=== PATIENT | female | born 1950 | race Caucasian/White ===

== ENCOUNTER 2016-11-23 21:12 | Inpatient (IN) | payer OTHER ==
[~2016-11-23] VITALS: Ht 152.4 cm; Wt 50.4 kg
--- NOTE | ~2016-11-23 | EKG ---
[place] [address] [employer] [address] ELECTROCARDIOGRAM REPORT Name: FARZAD PAZ Room #: 456-P ADM IN M.R.#: [id number] Admission: 11/23/16 Attend Phys: Cami Pride Discharge: Date of : 48 Report #: [id number] THIS REPORT FOR: //name// [facility] ED Test Date: 2016-11-23 Test Time: 21:50:14 Pat Name: FARZAD PAZ Department: Room: 456 Gender: F Phd Internship: Bright PARRISH : 1950 Requested By: Chelsy Noguera Order Number: [id number] MD: Leoncio Solis Measurements Intervals [place] Rate: 108 P: 67 AR: 127 QRS: 268 QRSD: 83 T: 31 QT: 324 QTc: 435 Interpretive Statements Sinus tachycardia Biatrial enlargement Left anterior fascicular block Poor R wave progression Compared to ECG 06/04/2016 19:24:03 septal Q waves less prominent Electronically Signed On 11-24-2016 8:38:29 CDT by Leoncio Solis [email or web address] <ELECTRONICALLY SIGNED> By: Leoncio Solis MD, [facility] 11/24/16 0838 49 49 Leoncio Solis MD, [facility] /EPI
--- NOTE | ~2016-11-23 | 2DMMODE ---
[facility] [address] [place] [address] 2 D/M-MODE ECHOCARDIOGRAM Name: FARZAD PAZ Room #: 456-P ADM IN M.R.#: [id number] Admission: 11/23/16 Attend Phys: Cami Meyers Discharge: Date of : 48 Date of Service: 11/25/16 1048 Report #: [id number] THIS REPORT FOR: //name// APPROVED REPORT Study performed: 11/25/2016 09:39:10 EXAM: Comprehensive 2D, Doppler, and color-flow Echocardiogram Patient Location: Echo lab Room #: [facility] Blood Pressure: 113/71 mmHg HR: 84 bpm Other Information Study Quality: Adequate Indications COPD Dyspnea 2D Dimensions LVEF(%): 65.35 (>50%) IVSd: 9.51 (7-11mm) LVOT Diam: 21.29 (18-24mm) LVDd: 40.89 mm PWd: 10.58 (7-11mm) Ascending Aorta: 32.38 mm LVDs: 26.40 (25-40mm) IVC: 24.00 mm Aortic Root: 31.60 mm Carmichael's LVEF: 65.35 % Volumes Left Atrial Volume (Systole) Single Plane 4CH: 26.71 mL Single Plane 2CH: 23.72 mL LA ESV Index: 19.00 mL/m2 Aortic Valve AoV Peak Saeid.: 1.25 m/s AO Peak Gr.: 6.25 mmHg LV Max P.60 mmHg LV Max: 1.18 m/s Mitral Valve E/A Ratio: 0.8 MV Decel. Time: 250.93 ms MV E Max Saeid.: 0.93 m/s [facility] [address] [place] [address] 2 D/M-MODE ECHOCARDIOGRAM Name: FARZAD PAZ Room #: 456-P [facility] IN [facility]#: [id number] Admission: 11/23/16 Attend Phys: Cami Meyers Discharge: Date of : 48 Date of Service: 11/25/16 1048 Report #: [id number] MV A Saeid.: 1.15 m/s MV PHT: 72.77 ms Pulmonary Valve PV Peak Saeid.: 0.82 m/s PV Peak Gr.: 2.69 mmHg Pulmonary Vein P Vein S: 63.7 m/s P Vein D: 42.6 m/s P Vein A Dur.: 46.1 m/s PVa Duration: 92 Tricuspid Valve RAP Estimate: 10.00 mmHg Left Ventricle The left ventricle is normal size. There is normal LV segmental wall motion. There is normal left ventricular wall thickness. The left ventricular systolic function is normal. The left ventricular ejection fraction is within the normal range. LVEF is 60-65%. Grade I - abnormal relaxation pattern. Right Ventricle The right ventricle is normal size. The right ventricular systolic function is normal. Atria The left atrium size is normal. The right atrium size is normal. Aortic Valve The aortic valve is normal in structure. No aortic regurgitation is present. There is no aortic valvular stenosis. Mitral Valve The mitral valve is normal in structure. Trace mitral regurgitation. No evidence of mitral valve stenosis. Tricuspid Valve The tricuspid valve is normal in structure. There is trace tricuspid regurgitation. The right atrial pressure is estimated at 10 mmHg. There is no pulmonary hypertension. Pulmonic Valve The pulmonary valve is normal in structure. There is no pulmonic valvular regurgitation. [facility] [employer] [place] [address] 2 D/M-MODE ECHOCARDIOGRAM Name: FARZAD PAZ Darrin Room #: 456-P [facility] IN M.R.#: [id number] Admission: 11/23/16 Attend Phys: Cami Meyers Discharge: Date of : 48 Date of Service: 11/25/16 1048 Report #: [id number] Great Vessels The aortic root is normal in size. IVC is dilated and collapses >50% with inspiration. Pericardium There is no pericardial effusion. <Conclusion> The left ventricular systolic function is normal. There is normal LV segmental wall motion. LVEF 60-65%. Grade I diastolic dysfunction The aortic valve is normal in structure. No aortic regurgitation or stenosis. The mitral valve is normal in structure. No mitral regurgitation. Pulmonary artery pressure could not be reliably ascertained There is no pericardial effusion. <ELECTRONICALLY SIGNED> By: Leoncio Solis MD, FAC 11/25/16 1048 1048 1048 Leoncio Solis MD, FAC /INF
--- NOTE | ~2016-11-23 | HC ---
[facility] [place] [address] [place] [address] CONSULTATION Name: FARZAD PAZ Room #: 456-P [facility] IN M.R.#: [id number] Admission: 11/23/16 Attend Phys: Cami Pride Discharge: Date of : 48 Report #: [id number] THIS REPORT FOR: //name// CC: Ruby JEFFERY physician/PCP Cami Pride DATE OF SERVICE: 11/26/2016 HISTORY OF PRESENT ILLNESS: The patient is a 66-year-old white female with history of COPD, admitted with acute respiratory failure with hypoxemia. She was noted to have community-acquired pneumonia, right lower lobe with severe leukocytosis. She has problems with mucus plugging. Pulmonary medicine has been closely involved. She is on high dose O2 6-8 liters. We are seeing her in rehabilitation medicine consultation. PAST MEDICAL HISTORY: Includes chronic bronchitis, diverticulitis with prior ruptured bowel surgery and colostomy, tubal ligation, asthma, colostomy takedown. HABITS: Tobacco abuse has been one half per day, used to be 2 packs per day. No history of ETOH abuse. FAMILY HISTORY: Mother of lung cancer. MEDICATIONS: Please see the full medication listing. SOCIAL HISTORY: Lives in a house with son and his family, one step in. She was driving, was independent for ADLs, do not use a gait aid, was on O2 p.r.n. at home. REVIEW OF SYSTEMS: Main complaint is her lungs, shortness of breath and cough and O2 needs. No complaints of chest pain, abdominal discomfort. No focal extremity pain complaints. PHYSICAL EXAMINATION: GENERAL: A 66-year-old white female in no obvious distress. VITAL SIGNS: Last recorded temperature 97.6, pulse 93, respirations 18, blood pressure 131/74. NEUROLOGIC: She is alert, oriented, appropriate, currently on 6 liters nasal cannula. Facies are symmetric. She has functional range of motion of both upper extremities with strength grade 4+/5. DTRs are trace to 1. Lower extremities, no focal calf swelling. Functional range of motion with strength grade 4+/5. DTRs are trace to 1. ASSESSMENT: [facility] [address] [place] [address] CONSULTATION Name: NOHELIA PAZPARADISE Clifford Room #: 456-P [facility] IN .R.#: [id number] Admission: 11/23/16 Attend Phys: Cami Pride Discharge: Date of : 48 Report #: [id number] 1. Pulmonary rehabilitation. 2. Acute respiratory failure with hypoxemia. 3. Community-acquired pneumonia, right lower lobe. 4. Severe leukocytosis. 5. Chronic obstructive pulmonary disease. 6. Tobacco abuse. 7. Family history positive for asthma and lung cancer. 8. Prior history of colostomy for diverticulitis with takedown. PLAN: PT and OT. Further orders are entered. Insurance will need to be checked regarding rehab therapy options for discharge. Thank you for asking us to assist in this patient's care. By: 1120 1452 Basil Dallas MD /nt
--- NOTE | ~2016-11-23 | HC ---
[facility] [address] [place] [address] CONSULTATION Name: PAZFARZAD Darrin Room #: 456-P [facility] IN M.R.#: [id number] Admission: 11/23/16 Attend Phys: Cami Pride Discharge: Date of : 48 Report #: [id number] THIS REPORT FOR: //name// CC: Ruby JEFFERY physician/PCP Cami Pride DATE OF SERVICE: 11/24/2016 REASON FOR CONSULTATION: Exacerbation of chronic obstructive pulmonary disease. IMPRESSION: 1. Acute on chronic respiratory failure with hypoxemia. 2. Mucus plugging. 3. Tobacco use. 4. Leukocytosis. PLAN: Pulmonary toilet, aerosol therapy. Need to work on home medications ____ flutter. Continue current cefepime until sputum culture. HISTORY OF PRESENT ILLNESS: This is a very pleasant 66-year-old female, relates was doing her usual state of health, was not using nebulizers as could not afford them, was using the oxygen when she thought she needed it, was on the wrong side of a barbeque grill and relates had progressive shortness of breath. No fever, chills, or night sweats. No nausea or vomiting. ALLERGIES: AMOXICILLIN, CLAVULANIC ACID, CONTRAST. FAMILY HISTORY: Positive for asthma and lung CA. SOCIAL HISTORY: Positive tobacco, negative ETOH. PAST SURGICAL HISTORY: Include colostomy for diverticulitis with takedown, tonsillectomy, tubal ligation. REVIEW OF SYSTEMS: Positive history of asthma as a child. Positive tobacco use. Positive mucus. No nausea or vomiting. No palpitations or chest pain. No peripheral edema. PHYSICAL EXAMINATION: VITAL SIGNS: T-max 100, pulse 95, respirations 20, BP 136/70. EYES: Negative icterus. NECK: Negative JVD. LUNGS: Showed wheeze bilateral. HEART: Regular. ABDOMEN: Bowel sounds present. [facility] [address] [place] [address] CONSULTATION Name: FARZAD PAZ Room #: 456-P [facility] IN ..#: [id number] Admission: 11/23/16 Attend Phys: Cami Pride Discharge: Date of : 48 Report #: [id number] EXTREMITIES: Showed no calf tenderness. LABORATORY DATA: Chest x-ray showed interstitial prominence. BUN 23, creatinine 0.6. Albumin 3.2. Lactate 1.3. Influenza negative. D-dimer 0.8. TSH 2.831. Perfusion lung scan showed low probability. We will follow closely with you. <ELECTRONICALLY SIGNED> By: Ruby Gibson MD 11/25/16 1341 1821 0126 Ruby Gibson MD /nt
[2016-11-23 21:12] VITALS: BP 155/99
[~2016-11-23 21:12] MED LIST: ACCUNEB SO1.25 MG/1 INH; ADVAIR HFA 230M12 GM INH; CEFTIN500 MG PO; DOXYCYCLINE 10100 MG PO; DUONEB 2.5-0.5 M3 ML INH; LEVAQUIN 500 M500 M2 PO; MUCINEX DM TABL1 TA1 PO; MUCINEX TA600 MG/TA2 PO; NEBULIZER MISCELL; OXYGEN MISCELL; PREDNISONE 10 M10 MG PO; PULMICORT0.5 MG/22 INH
[2016-11-23 21:43] LABS: HEMOGLOBIN 15.2 gm/dL (12.0-15.0); MCH 29.1 pg (26.0-34.0); MCV 88.2 fL (80.0-100.0); PLATELET COUNT 346 thou/uL (150-400); RBC 5.22 mil/uL (4.20-5.00); RDW 15.3 % (10.5-14.5); WBC 23.4 thou/uL (4.0-11.0)
[2016-11-23 21:54] LABS: MANUAL DIFF YES
[2016-11-23 22:00] LABS: ANION GAP 8 mmol/L (7-16); BUN 23 mg/dL (7-18); CALCIUM 9.2 mg/dL (8.5-10.1); CHLORIDE 103 mmol/L (98-107); CO2 29 mmol/L (21-32); CREATININE 0.6 mg/dL (0.6-1.0); GLUCOSE 137 mg/dL (74-106); POTASSIUM 3.5 mmol/L (3.5-5.1); SODIUM 140 mmol/L (136-145)
[2016-11-23 22:11] LABS: ALBUMIN 3.2 g/dL (3.4-5.0); ALKALINE PHOSPHATASE 85 U/L (46-116); NT-PRO BRAIN NAT PEPTIDE 644 pg/mL (<300); SGOT 12 U/L (15-37); SGPT 13 U/L (30-65); TOTAL BILIRUBIN 0.4 mg/dL (<0.1-1.0); TROPONIN-I < 0.04 ng/mL (<0.04-0.07)
[2016-11-23 23:02] VITALS: BP 125/79
[2016-11-23 23:04] LABS: ANISOCYTOSIS SLIGHT; TOTAL CELL COUNT 100
[2016-11-24 00:20] VITALS: BP 125/87
[2016-11-24 03:49] VITALS: BP 110/71
[2016-11-24 08:10] VITALS: BP 102/74
[2016-11-24 10:58] VITALS: BP 109/71
[2016-11-24 15:08] VITALS: BP 136/70
[2016-11-24 19:03] VITALS: BP 119/72
[2016-11-25 04:01] VITALS: BP 117/69
[2016-11-25 05:34] LABS: HEMATOCRIT 43.2 % (37.0-47.0); HEMOGLOBIN 13.7 gm/dL (12.0-15.0); MCH 28.6 pg (26.0-34.0); MCHC 31.7 g/dL (28.0-37.0); MCV 90.2 fL (80.0-100.0); RBC 4.78 mil/uL (4.20-5.00)
[2016-11-25 05:53] LABS: CALCIUM 9.2 mg/dL (8.5-10.1); CREATININE 0.7 mg/dL (0.6-1.0); MAGNESIUM 1.7 mg/dL (1.8-2.4); POTASSIUM 4.3 mmol/L (3.5-5.1)
[2016-11-25 07:21] VITALS: BP 113/71
[2016-11-25 11:13] VITALS: BP 117/75
[2016-11-25 15:47] VITALS: BP 125/77
[2016-11-25 20:18] VITALS: BP 132/88
[2016-11-26 04:16] VITALS: BP 139/77
[2016-11-26 08:31] VITALS: BP 131/74
[2016-11-26 12:59] VITALS: BP 169/95
[2016-11-26 16:50] VITALS: BP 157/87
[2016-11-26 21:12] VITALS: BP 166/93
[2016-11-27] VITALS (7 sets, daily range): BP systolic 148–182; BP diastolic 85–100
[2016-11-27 09:12] LABS: GLOMERULR BASEM MEMBRN AB 2 units (0-20)
[2016-11-27] MEDS ORDERED: CLARITIN10 MG PO (09:27)
[2016-11-27] MEDS ORDERED: PREDNISONE 10 M10 MG PO (09:34)
[2016-11-27 16:08] LABS: c-ANCA <1:20 titer (Neg:<1:20); p-ANCA <1:20 titer (Neg:<1:20)
== END 2016-11-27 16:15 | disposition home health service (06) | DRG 871 ==
LOC: ER 21:12 → EROBS 22:25 → 4W 22:25
PROVIDERS: Emergency Medicine; Hospitalist; Internal Medicine Pulmonary Disease; Nurse Practitioner
DX: A41.9 Sepsis, unspecified organism (principal); J18.9 Pneumonia, unspecified organism; J96.21 Acute and chronic respiratory failure with hypoxia; J44.1 Chronic obstructive pulmonary disease with (acute) exacerbation; J44.0 Chronic obstructive pulmonary disease with (acute) lower respiratory infection; F17.210 Nicotine dependence, cigarettes, uncomplicated; T17.990A Other foreign object in respiratory tract, part unspecified in causing asphyxiation, initial encounter; X58.XXXA Exposure to other specified factors, initial encounter; K46.9 Unspecified abdominal hernia without obstruction or gangrene; I71.4 Abdominal aortic aneurysm, without rupture; Y93.89 Activity, other specified; Y92.89 Other specified places as the place of occurrence of the external cause; Z90.49 Acquired absence of other specified parts of digestive tract; Z93.3 Colostomy status; Z88.8 Allergy status to other drugs, medicaments and biological substances; Z82.49 Family history of ischemic heart disease and other diseases of the circulatory system; Z88.0 Allergy status to penicillin; Z88.1 Allergy status to other antibiotic agents; Z91.041 Radiographic dye allergy status; Y99.8 Other external cause status; Z80.1 Family history of malignant neoplasm of trachea, bronchus and lung; Z83.6 Family history of other diseases of the respiratory system
CPT/HCPCS: 10045

== ENCOUNTER → 2017-03-16 | Outpatient (CLI) | payer OTHER ==
[~2017-03-16] MED LIST changes: +CLARITIN10 MG PO
== END ==
LOC: RAD 14:47
DX: J98.4 Other disorders of lung (principal)

== ENCOUNTER 2017-04-24 19:58 | Emergency (ER) | payer OTHER ==
[~2017-04-24] VITALS: Ht 152.4 cm; Wt 52.2 kg
--- NOTE | ~2017-04-24 | EKG ---
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: Bright VELARDE : 1950 Requested By: Jacoby Barnett Order Number: [id number] MD: Leoncio Solis Measurements Intervals [place] Rate: 104 P: 64 [place]: 133 QRS: -33 QRSD: 75 T: 38 QT: 313 QTc: 412 Interpretive Statements Sinus tachycardia Anteroseptal infarct, age indeterminate Compared to ECG 11/23/2016 21:50:14 No significant change was found Electronically Signed On 04-26-2017 13:31:43 CDT by Leoncio Solis [email or web address] <ELECTRONICALLY SIGNED> By: Leoncio Solis MD, [facility] 04/26/17 1331 2029 28 Leoncio Solis MD, [facility] /EPI
[2017-04-24] MEDS ORDERED: ALBUTEROL2.5 MG/31 INH (20:35)
[2017-04-24 21:26] LABS: ABSOLUTE NEUTROPHILS 11.8 thou/uL (1.4-8.2); BASOPHILS 0.5 % (0.0-2.0); EOSINOPHILS 1.8 % (0.0-3.0); HEMATOCRIT 40.4 % (37.0-47.0); HEMOGLOBIN 13.5 gm/dL (12.0-15.0); LYMPHOCYTES 12.9 % (24.0-44.0); MCHC 33.5 g/dL (28.0-37.0); MCV 89.7 fL (80.0-100.0); MONOCYTES 5.1 % (1.0-8.0); PLATELET COUNT 285 thou/uL (150-400); POLYS 79.7 % (36.0-66.0); RBC 4.51 mil/uL (4.20-5.00); RDW 14.1 % (10.5-14.5); WBC 14.8 thou/uL (4.0-11.0)
[2017-04-24 21:34] LABS: ANION GAP 10 mmol/L (7-16); BUN 12 mg/dL (7-18); CALCIUM 8.9 mg/dL (8.5-10.1); CHLORIDE 102 mmol/L (98-107); CO2 26 mmol/L (21-32); CREATININE 0.7 mg/dL (0.6-1.0); GLUCOSE 140 mg/dL (74-106); POTASSIUM 3.6 mmol/L (3.5-5.1); SODIUM 138 mmol/L (136-145)
[2017-04-24 21:36] LABS: MANUAL DIFF NO
[2017-04-24 21:39] LABS: APTT 27.4 Seconds (24.5-32.8)
[2017-04-24 21:46] LABS: ALBUMIN 3.6 g/dL (3.4-5.0); ALKALINE PHOSPHATASE 93 U/L (46-116); MAGNESIUM 1.6 mg/dL (1.8-2.4); SGOT 12 U/L (15-37); SGPT 12 U/L (30-65); TOTAL BILIRUBIN 0.3 mg/dL (<0.1-1.0); TOTAL PROTEIN 7.5 g/dL (6.4-8.2); TROPONIN-I < 0.04 ng/mL (<0.04-0.07)
[2017-04-24] MEDS ORDERED: DOXYCYCLINE 10100 MG PO (22:07)
[2017-04-24] MEDS ORDERED: PREDNISONE 20 M20 MG PO (22:07)
[2017-04-24] MEDS ORDERED: VENTOLIN HFA 1818 GM INH (22:07)
== END 2017-04-24 23:47 | disposition home or self-care (01) ==
LOC: ER 19:58
PROVIDERS: Emergency Medicine
DX: J44.1 Chronic obstructive pulmonary disease with (acute) exacerbation (principal); J20.9 Acute bronchitis, unspecified; F17.210 Nicotine dependence, cigarettes, uncomplicated; Z99.81 Dependence on supplemental oxygen; Z87.01 Personal history of pneumonia (recurrent); Z98.890 Other specified postprocedural states; Z88.1 Allergy status to other antibiotic agents; Z88.0 Allergy status to penicillin; Z91.041 Radiographic dye allergy status

== ENCOUNTER 2018-06-04 14:48 | Inpatient (IN) | payer OTHER ==
[~2018-06-04] VITALS: Ht 152.4 cm; Wt 52.2 kg
--- NOTE | ~2018-06-04 | PATH ---
[facility] [place] [address] PATHOLOGY RPT PROCEDURE Name: FARZAD MARTIN Room #: 351-P [facility] IN M.R.#: [id number] Admission: 06/04/18 Date of : 48 Discharge: Report #: [id number] Path Case #: [id number] [facility] Accession Number: [id number] . 01 Material submitted: . BX OF POLYP IN SIGMOID COLON . 01 Clinical history: . Constipation Colon polyp . 02 Diagnosis: Colonic mucosa "biopsy of polyp at sigmoid colon": - Tubular adenoma. - There is no evidence of high-grade dysplasia or malignancy. (SHA:coleman; 06/15/2018) QMS/06/15/2018 . 02 Electronically signed: . Owen Massey MD, Pathologist NPI- [id number] . 01 Gross description: . The specimen is received in formalin, labeled "Martin, Karran, BX of polyp in sigmoid" and consists of a fragment of soft moura tissue measuring 0.3 x 0.3 x 0.1 cm, which is entirely submitted in A1. (SDY; 06/14/2018) SYU/SYU . 02 Pathologist provided ICD-10: D12.5 . 02 CPT . 378576 Specimen Comment: A courtesy copy of this report has been sent to Specimen Comment: [phone], , . Specimen Comment: Report sent to ,DR GUNTER / DR GRUBBS Performed at: [address], [place], [place] [id number] MD Kings Murcia MD Phone: [phone] Performed at: [address] [id number] MD Faye Reis MD Phone: [phone]
--- NOTE | ~2018-06-04 | EKG ---
[address] [place] [address] ELECTROCARDIOGRAM REPORT Name: FARZAD PAZ Darrin Room #: 170-12 ADM IN M.R.#: [id number] Admission: 06/04/18 Attend Phys: Gilberto Rice MD Discharge: Date of : 48 Report #: [id number] THIS REPORT FOR: //name// [facility] ED Test Date: 2018-06-04 Test Time: 15:00:40 Pat Name: FARZAD PAZ Department: Room: 170 Gender: F Cable Repairer: MAYA : 1950 Requested By: Fiona Conn Order Number: [id number] MD: Leoncio Solis Measurements Intervals [place] Rate: 101 P: 85 [place]: 137 QRS: -9 QRSD: 73 T: 63 QT: 312 QTc: 405 Interpretive Statements Sinus tachycardia Anteroseptal infarct, age indeterminate Compared to ECG 04/24/2017 20:29:34 No significant change was found Electronically Signed On 06-04-2018 17:17:35 CDT by Leoncio Solis [email or web address] <ELECTRONICALLY SIGNED> By: Leoncio Solis MD, [facility] 06/04/18 1717 1500 99 Leoncio Solis MD, [facility] /EPI
[~2018-06-04 14:48] MED LIST changes: +ALBUTEROL2.5 MG/31 INH; +PREDNISONE 20 M20 MG PO; +VENTOLIN HFA 1818 GM INH
[2018-06-04 14:57] VITALS: BP 152/88
[2018-06-04 15:37] LABS: ABSOLUTE NEUTROPHILS 4.5 thou/uL (1.4-8.2); BASOPHILS 1.1 % (0.0-2.0); EOSINOPHILS 8.1 % (0.0-3.0); HEMOGLOBIN 14.3 gm/dL (12.0-15.0); LYMPHOCYTES 29.8 % (24.0-44.0); MCH 31.2 pg (26.0-34.0); MCV 91.9 fL (80.0-100.0); MONOCYTES 4.2 % (1.0-8.0); PLATELET COUNT 275 thou/uL (150-400); POLYS 56.8 % (36.0-66.0); RBC 4.57 mil/uL (4.20-5.00); RDW 13.3 % (10.5-14.5); WBC 7.9 thou/uL (4.0-11.0)
[2018-06-04 15:55] LABS: ANION GAP 6 mmol/L (7-16); BUN 12 mg/dL (7-18); CALCIUM 9.5 mg/dL (8.5-10.1); CHLORIDE 101 mmol/L (98-107); CO2 33 mmol/L (21-32); CREATININE 0.7 mg/dL (0.6-1.0); GLUCOSE 163 mg/dL (74-106); POTASSIUM 3.9 mmol/L (3.5-5.1); SODIUM 140 mmol/L (136-145)
[2018-06-04 16:01] LABS: ALBUMIN 3.6 g/dL (3.4-5.0); SGOT 19 U/L (15-37); SGPT 25 U/L (30-65); TOTAL BILIRUBIN 0.3 mg/dL (<0.1-1.0); TOTAL PROTEIN 7.7 g/dL (6.4-8.2); TROPONIN-I <0.06 ng/mL (<0.06)
[2018-06-04 17:24] VITALS: BP 152/88
[2018-06-04 18:10] VITALS: BP 126/61
[2018-06-04 18:44] VITALS: BP 121/84
[2018-06-04 23:15] VITALS: BP 126/82
[2018-06-04 23:20] VITALS: BP 126/82
[2018-06-05 04:00] VITALS: BP 125/70
[2018-06-05 07:38] VITALS: BP 135/82
[2018-06-05 15:17] VITALS: BP 141/98
[2018-06-05 19:20] VITALS: BP 143/89
[2018-06-06 03:45] VITALS: BP 159/91
[2018-06-06 05:11] LABS: HEMATOCRIT 42.6 % (37.0-47.0); HEMOGLOBIN 14.1 gm/dL (12.0-15.0); MCH 30.8 pg (26.0-34.0); MCHC 33.2 g/dL (28.0-37.0); MCV 92.8 fL (80.0-100.0); RBC 4.59 mil/uL (4.20-5.00); RDW 13.4 % (10.5-14.5); WBC 15.5 thou/uL (4.0-11.0)
[2018-06-06 05:16] LABS: CALCIUM 10.1 mg/dL (8.5-10.1); CREATININE 0.7 mg/dL (0.6-1.0); POTASSIUM 4.6 mmol/L (3.5-5.1)
[2018-06-06 07:28] VITALS: BP 134/84
[2018-06-06 12:00] VITALS: BP 116/67
[2018-06-06 15:30] VITALS: BP 179/117
[2018-06-06 19:30] VITALS: BP 160/108
[2018-06-07] VITALS: BP 135/83
[2018-06-07 03:00] VITALS: BP 161/75
[2018-06-07 07:36] VITALS: BP 143/87
[2018-06-07 11:06] LABS: HEMATOCRIT 44.9 % (37.0-47.0); HEMOGLOBIN 15.1 gm/dL (12.0-15.0); MCH 30.8 pg (26.0-34.0); MCHC 33.7 g/dL (28.0-37.0); MCV 91.5 fL (80.0-100.0); RBC 4.91 mil/uL (4.20-5.00); RDW 13.7 % (10.5-14.5); WBC 16.7 thou/uL (4.0-11.0)
[2018-06-07 11:20] VITALS: BP 143/94
[2018-06-07 15:29] VITALS: BP 120/75
[2018-06-07 19:35] VITALS: BP 104/65
[2018-06-08 03:55] VITALS: BP 109/76
[2018-06-08 07:42] VITALS: BP 147/88
[2018-06-08 17:00] VITALS: BP 125/81
[2018-06-08 19:25] VITALS: BP 119/79
[2018-06-09 00:40] VITALS: BP 106/73
[2018-06-09 04:08] LABS: CREATININE 0.7 mg/dL (0.6-1.0); POTASSIUM 3.8 mmol/L (3.5-5.1)
[2018-06-09 04:15] VITALS: BP 121/82
[2018-06-09 04:48] LABS: HEMATOCRIT 40.2 % (37.0-47.0); HEMOGLOBIN 13.5 gm/dL (12.0-15.0); MCH 31.1 pg (26.0-34.0); MCHC 33.5 g/dL (28.0-37.0); MCV 92.9 fL (80.0-100.0); RBC 4.33 mil/uL (4.20-5.00); RDW 13.3 % (10.5-14.5); WBC 10.2 thou/uL (4.0-11.0)
[2018-06-09 07:30] VITALS: BP 117/76
[2018-06-09 19:35] VITALS: BP 137/99
[2018-06-10 03:50] VITALS: BP 125/74
[2018-06-10 07:34] VITALS: BP 144/90
[2018-06-10 10:12] LABS: CALCIUM 9.2 mg/dL (8.5-10.1); CREATININE 0.5 mg/dL (0.6-1.0); MAGNESIUM 2.1 mg/dL (1.8-2.4); POTASSIUM 4.1 mmol/L (3.5-5.1)
[2018-06-10 16:53] VITALS: BP 156/93
[2018-06-10 19:46] VITALS: BP 151/100
[2018-06-11 04:34] VITALS: BP 132/79
[2018-06-11 07:52] VITALS: BP 149/90
[2018-06-11 09:36] LABS: HEMATOCRIT 37.7 % (37.0-47.0); HEMOGLOBIN 12.6 gm/dL (12.0-15.0); MCH 31.3 pg (26.0-34.0); MCHC 33.5 g/dL (28.0-37.0); MCV 93.6 fL (80.0-100.0); RBC 4.03 mil/uL (4.20-5.00); RDW 13.2 % (10.5-14.5); WBC 7.4 thou/uL (4.0-11.0)
[2018-06-11 10:13] LABS: ALBUMIN 3.1 g/dL (3.4-5.0); CALCIUM 8.9 mg/dL (8.5-10.1); CREATININE 0.8 mg/dL (0.6-1.0); MAGNESIUM 1.9 mg/dL (1.8-2.4); POTASSIUM 4.1 mmol/L (3.5-5.1); TOTAL BILIRUBIN 0.4 mg/dL (<0.1-1.0); TOTAL PROTEIN 5.9 g/dL (6.4-8.2)
[2018-06-11 16:53] VITALS: BP 140/72
[2018-06-11 19:30] VITALS: BP 131/83
[2018-06-12 04:00] VITALS: BP 121/65
[2018-06-12 08:20] VITALS: BP 144/80
[2018-06-12 12:42] VITALS: BP 154/88
[2018-06-12 16:16] VITALS: BP 138/78
[2018-06-12 19:30] VITALS: BP 121/74; BP 122/72
[2018-06-13 04:00] VITALS: BP 137/85
[2018-06-13 07:34] VITALS: BP 148/88
[2018-06-13 12:32] LABS: HEMATOCRIT 38.7 % (37.0-47.0); MCH 30.8 pg (26.0-34.0); MCHC 33.6 g/dL (28.0-37.0); MCV 91.7 fL (80.0-100.0); RBC 4.22 mil/uL (4.20-5.00); RDW 13.2 % (10.5-14.5); WBC 9.9 thou/uL (4.0-11.0)
[2018-06-13 12:47] LABS: ALBUMIN 2.9 g/dL (3.4-5.0); CALCIUM 8.1 mg/dL (8.5-10.1); CREATININE 0.4 mg/dL (0.6-1.0); MAGNESIUM 1.8 mg/dL (1.8-2.4); POTASSIUM 3.7 mmol/L (3.5-5.1); TOTAL BILIRUBIN 0.2 mg/dL (<0.1-1.0); TOTAL PROTEIN 5.7 g/dL (6.4-8.2)
[2018-06-13 15:16] VITALS: BP 134/83
[2018-06-13 19:10] VITALS: BP 133/93
[2018-06-14 04:00] VITALS: BP 122/81
[2018-06-14 07:08] VITALS: BP 143/87
[2018-06-14 16:52] VITALS: BP 145/85
[2018-06-14 19:39] VITALS: BP 143/89
[2018-06-15 03:52] VITALS: BP 121/73
[2018-06-15 08:07] VITALS: BP 159/93
[2018-06-15 08:59] LABS: HEMATOCRIT 37.5 % (37.0-47.0); HEMOGLOBIN 12.6 gm/dL (12.0-15.0); MCHC 33.6 g/dL (28.0-37.0); RBC 4.08 mil/uL (4.20-5.00); RDW 12.9 % (10.5-14.5); WBC 15.6 thou/uL (4.0-11.0)
[2018-06-15 09:16] LABS: CALCIUM 8.4 mg/dL (8.5-10.1); CREATININE 0.5 mg/dL (0.6-1.0); MAGNESIUM 1.8 mg/dL (1.8-2.4); POTASSIUM 3.6 mmol/L (3.5-5.1)
[2018-06-15 11:46] LABS: HEMATOCRIT 36.4 % (37.0-47.0); HEMOGLOBIN 12.4 gm/dL (12.0-15.0); MCH 31.3 pg (26.0-34.0); MCV 92.3 fL (80.0-100.0); RBC 3.94 mil/uL (4.20-5.00); RDW 13.3 % (10.5-14.5); WBC 15.9 thou/uL (4.0-11.0)
[2018-06-15 15:49] VITALS: BP 147/100
[2018-06-15 19:50] VITALS: BP 133/81
[2018-06-16 04:20] VITALS: BP 105/71
[2018-06-16 05:57] LABS: HEMATOCRIT 34.4 % (37.0-47.0); HEMOGLOBIN 11.6 gm/dL (12.0-15.0); MCH 31.4 pg (26.0-34.0); MCHC 33.8 g/dL (28.0-37.0); RBC 3.7 mil/uL (4.20-5.00); RDW 13.3 % (10.5-14.5); WBC 17.3 thou/uL (4.0-11.0)
[2018-06-16 06:08] LABS: CALCIUM 7.4 mg/dL (8.5-10.1); CREATININE 0.4 mg/dL (0.6-1.0); MAGNESIUM 1.8 mg/dL (1.8-2.4); POTASSIUM 3.4 mmol/L (3.5-5.1)
[2018-06-16 07:35] VITALS: BP 131/84
[2018-06-16 09:15] VITALS: BP 131/84
[2018-06-16] MEDS ORDERED: NORVASC10 MG PO (13:20)
[2018-06-16] MEDS ORDERED: PULMICORT0.5 MG/21 INH (13:24)
[2018-06-16] MEDS ORDERED: MIRALAX17 GM PO (13:24)
[2018-06-16] MEDS ORDERED: PREDNISONE 10 M10 MG PO (13:27)
[2018-06-16] MEDS ORDERED: MILK OF MA2400 MG/10 PO (13:28)
[2018-06-16] MEDS ORDERED: VENTOLIN HFA 1818 GM INH (14:13)
[2018-06-16] MEDS ORDERED: ALBUTEROL2.5 MG/31 INH (14:13)
== END 2018-06-16 16:38 | disposition home or self-care (01) | DRG 871 ==
LOC: ER 14:48 → EROBS 16:55 → 3W 16:55 → ENTRNSPT 06-16 16:26 → 3W 06-16 16:38
PROVIDERS: Hospitalist; Internal Medicine; Nurse Practitioner Family
PROC: 0DJD8ZZ Inspection of Lower Intestinal Tract, Via Natural or Artificial Opening Endoscopic (ICD-10-PCS; principal; 2018-06-10)
PROC: 0DBM8ZX Excision of Descending Colon, Via Natural or Artificial Opening Endoscopic, Diagnostic (ICD-10-PCS; 2018-06-11)
DX: A41.9 Sepsis, unspecified organism (principal); J96.21 Acute and chronic respiratory failure with hypoxia; J44.1 Chronic obstructive pulmonary disease with (acute) exacerbation; K56.7 Ileus, unspecified; K62.5 Hemorrhage of anus and rectum; J20.9 Acute bronchitis, unspecified; F17.210 Nicotine dependence, cigarettes, uncomplicated; K59.00 Constipation, unspecified; D12.4 Benign neoplasm of descending colon; K42.9 Umbilical hernia without obstruction or gangrene; E87.6 Hypokalemia; T38.0X5A Adverse effect of glucocorticoids and synthetic analogues, initial encounter; R79.89 Other specified abnormal findings of blood chemistry; R14.3 Flatulence; Y92.89 Other specified places as the place of occurrence of the external cause; Z79.51 Long term (current) use of inhaled steroids; Z87.19 Personal history of other diseases of the digestive system; Z79.899 Other long term (current) drug therapy; Z88.0 Allergy status to penicillin; Z71.6 Tobacco abuse counseling; Z99.81 Dependence on supplemental oxygen; Z86.010 Personal history of colon polyps; Z88.8 Allergy status to other drugs, medicaments and biological substances; Z88.1 Allergy status to other antibiotic agents; Z91.041 Radiographic dye allergy status; Z80.1 Family history of malignant neoplasm of trachea, bronchus and lung; Z82.49 Family history of ischemic heart disease and other diseases of the circulatory system; Z23 Encounter for immunization
CPT/HCPCS: 10879; 62110; 62900; 70005

== ENCOUNTER → 2018-06-24 | Outpatient (CLI) | payer OTHER ==
[~2018-06-24] MED LIST changes: +MILK OF MA2400 MG/10 PO; +MIRALAX17 GM PO; +NORVASC10 MG PO; +PULMICORT0.5 MG/21 INH
== END ==
LOC: RAD 15:18
DX: Z12.31 Encounter for screening mammogram for malignant neoplasm of breast (principal)

== ENCOUNTER 2018-11-23 14:45 | Inpatient (IN) | payer OTHER ==
[~2018-11-23] VITALS: Ht 152.4 cm; Wt 50.3 kg
[2018-11-23] VITALS (9 sets, daily range): BP systolic 87–128; BP diastolic 47–77
[2018-11-23 15:14] LABS: HEMATOCRIT 39.3 % (37.0-47.0); MCH 29.7 pg (26.0-34.0); MCHC 33.1 g/dL (28.0-37.0); MCV 89.8 fL (80.0-100.0); PLATELET COUNT 389 thou/uL (150-400); RBC 4.38 mil/uL (4.20-5.00); RDW 13.8 % (10.5-14.5); WBC 27.8 thou/uL (4.0-11.0)
[2018-11-23 15:19] LABS: BE(vivo) 3.9 mmol/L (-2 to +3); HCO3 29.3 mmol/L (22.0-26.0); PCO2 47.1 mmHg (35.0-45.0); PO2 111.5 mmHg (80.0-100.0); pH 7.412 (7.360-7.450); sO2 98.1 % (92.0-98.0)
[2018-11-23 15:24] LABS: ANION GAP 14 mmol/L (7-16); BUN 18 mg/dL (7-18); CHLORIDE 97 mmol/L (98-107); CO2 28 mmol/L (21-32); CREATININE 0.6 mg/dL (0.6-1.0); GLUCOSE 138 mg/dL (74-106); POTASSIUM 3.8 mmol/L (3.5-5.1); SODIUM 139 mmol/L (136-145)
[2018-11-23 15:32] LABS: TROPONIN-I <0.06 ng/mL (<0.06)
[2018-11-23 16:01] LABS: ABSOLUTE NEUTROPHILS 25.3 thou/uL (1.4-8.2); PLATELET ESTIMATE NORMAL
[2018-11-23] MEDS ORDERED: IPRAT-ALBUT 0.5-3 ML INH (16:05)
[2018-11-23] MEDS ORDERED: ALBUTEROL2.5 MG/31 INH (16:06)
--- NOTE | 2018-11-23 16:29 | EKG ---
[place] [address] [facility] [place] [address] ELECTROCARDIOGRAM REPORT Name: BRANDINOHELIAPARADISE Clifford [facility] #: [facility] [id number] ������������������ Admission: 11/23/18 ������������������ Attend Phys: Discharge: ������������������ Date of : 48 Report #: [id number] ����������������������������������������������������������������� [id number] THIS REPORT FOR: //name// [facility] ED Test Date: 2018-11-23 Test Time: 14:58:58 Pat Name: FARZAD PAZ Department: Room: Gender: F Flower Buncher Or Picker: MARAH : 1950 Requested By: Darren Long Order Number: [id number] MD: Evelio Philippe Measurements Intervals [place] Rate: 133 P: 78 DC: 149 QRS: 156 QRSD: 84 T: 63 QT: 286 QTc: 426 Interpretive Statements Sinus tachycardia LAE, consider biatrial enlargement Probable RVH w/ secondary repol abnormality Compared to ECG 06/04/2018 15:00:40 Myocardial infarct finding no longer present Electronically Signed On 11-23-2018 16:29:12 CDT by Evelio Philippe [email or web address] ��������������������������������������������� <ELECTRONICALLY SIGNED> ���������������������������������������� By: Evelio Philippe MD ��������������������������������������������� 11/23/18 1629 145 145 Evelio Philippe MD /CHARLES
--- NOTE | 2018-11-23 20:00 | NUR ---
ADMISSION NOTE: PT ARRIVED FROM ER WITH [facility] SUP. PT IN FAIR CONDITION. ON 4L NC. AOX4. DENIED PAIN. ADMISSION HX AND ASSESSMENT DOCUMENTED. ORDERS REVIEWED AND IMPLEMENTED. VSS. WILL CONTINUE TO MONITOR PT.
[2018-11-23] MEDS ORDERED: MUCINEX600 MG PO (20:22)
[2018-11-24] VITALS (23 sets, daily range): BP systolic 78–127; BP diastolic 43–90
[2018-11-24 04:57] LABS: HEMATOCRIT 37.3 % (37.0-47.0); HEMOGLOBIN 11.9 gm/dL (12.0-15.0); MCH 29.4 pg (26.0-34.0); MCV 91.6 fL (80.0-100.0); RBC 4.07 mil/uL (4.20-5.00); RDW 14.2 % (10.5-14.5); WBC 21.4 thou/uL (4.0-11.0)
[2018-11-24 05:04] LABS: CALCIUM 9.7 mg/dL (8.5-10.1); CREATININE 0.8 mg/dL (0.6-1.0); POTASSIUM 3.8 mmol/L (3.5-5.1)
--- NOTE | 2018-11-24 06:19 | NUR ---
PT AOX4. ON 5L NC. SOA WITH ACTIVITY. VSS. AFEBRILE. C/O PAIN, MEDICATED FOR PAIN RELIEF. UP TO BATHROOM WITH STANDBY. PT TOLERATES ACTIVITY. NO COMPLAINS PRESENTLY. PT SLOWLY PROGRESSING TOWARDS GOALS. WILL CONTINUE TO MONITOR.
--- NOTE | 2018-11-24 10:55 | NUR ---
Case opened to follow for dc planning. Pt is currently in the ICU with transfer orders today. She is being treated for exac copd and is on 4l o2 per nc. She is A&ox4 and reports that she normally wears 3liters at home. She lives independently in her own home with 2 steps to enter. Her son Fox,his and 2 adult gsons lives with her. She stays on the main level and they live in the basement. She is normally indep and her home o2 is thru [facility]. She drives, does all the cooking, and manages her own f/u care. She has had hh with [facility] in the past but does not feel she will need it at dc. Therapy is seeing her this am. Cm role introduced. Will follow along should dc needs arise.
--- NOTE | 2018-11-24 18:38 | NUR ---
AAAOX4 VERY PLEASANT AND COOPERATIVE. O2 AT 5L NC. UP TO BSC WITH MIN ASSIST. VOIDS CLEAR URINE AND WEARS PAD FOR STRESS INCONTINENCE. C/O KNEE PAIN BILAT AND TAKES TYLENOL WITH GOOD RELIEF. GOOD APPETITE. IV LEFT FORARM SALINE LOCKED. COUGH PRODUCTIVE WHITE SPUTUM SAMPLE SENT FOR C AND S. UP IN RECLINER FOR MEALS.
--- NOTE | 2018-11-25 00:29 | NUR ---
PT AOX4. ON 5L NC. SOA NOTED WITH EXERTION. DESSATS WITH STRENOUS ACITIVITY. VSS. AFEBRILE. MEDICATED FOR PAIN RELIEF. UP WITH STANDBY. NO COMPLAINS PRESENTLY. WILL CONTINUE TO MONITOR.
--- NOTE | 2018-11-25 00:45 | NUR ---
PT TRANSFERRING TO ROOM 356. REPORT GIVEN TO GINI COVARRUBIAS. PT WILL BE TRANSFERED TO BY WHEELCHAIR
[2018-11-25 01:30] VITALS: BP 136/84
[2018-11-25 04:30] VITALS: BP 119/67
--- NOTE | 2018-11-25 05:30 | NUR ---
PATIENT IS ALERT AND ORIENTED. PATIENT IS SBA. PATIENT IS ON 5LNC 3L IS BASELINE. PATIENT IS ACHS FOR STERIODS. PATIENTS LBM WAS THE 14TH PRUNE JUICE WAS GIVEN. PATIENTS LUNGS ARE COURSE AND WHEEZY. PATIENTS PAIN IS CONTROLLED. PATIENT IS RESTING COMFORTABLY IN BED. WCM.
[2018-11-25 07:44] VITALS: BP 135/76
--- NOTE | 2018-11-25 14:59 | NUR ---
SW reviewed chart and spoke with nursing and attending physician. Pt was transferred to 3 from ICU and is progressing towards goals for discharge. Discharge home is anticipated for tomorrow. Plan is for pt to discharge home when medically stable. SW is following to assist as needed with discharge planning.
[2018-11-25 15:32] VITALS: BP 145/86
--- NOTE | 2018-11-25 15:43 | NUR ---
PATIENT IS PLEASANT, ALERT ORIENTED X4. SHE DOES STILL HAVE DIFFICULTY WITH SOB WITH MINIMAL EXERTION. EDUCATED TO PACE ACTIVITY. REQUESTED A SHOWER AND WAS ASSISTED TO SHOWER. WILL CONT WITH PLAN OF CARE.
[2018-11-25 21:56] VITALS: BP 157/95
--- NOTE | 2018-11-26 00:54 | NUR ---
PATIENT IS ALERT AND ORIENTED. PATIENT IS UP AD ARNIE. PATIENT NSR ON TELE. PATIENTS PAIN IS CONTROLLED WITH PAIN MEDICATION. PATIENT IS ON 3L NC WHICH IS HER BASE LINE. PATIENT IS ACHS FOR STERIOD COLLIN. PATIENT IS PENDING DISCHARGE TODAY. PATIENT IS RESTING COMFORTABLY IN BED. WCM. PATIENT IS PROGERSSING TO GOALS.
[2018-11-26 05:43] VITALS: BP 152/89
[2018-11-26 07:35] VITALS: BP 154/85
[2018-11-26] MEDS ORDERED: PULMICORT0.5 MG/21 INH (10:18)
[2018-11-26] MEDS ORDERED: VENTOLIN HFA 1818 GM INH (10:18)
[2018-11-26] MEDS ORDERED: DOXYCYCLINE 10100 MG PO (10:19)
[2018-11-26] MEDS ORDERED: PREDNISONE 20 M20 MG PO (10:19)
[2018-11-26] MEDS ORDERED: PERFOROMIS20 MCG/2 M INH (10:24)
[2018-11-26 10:56] VITALS: BP 154/85
[2018-11-26 11:51] VITALS: BP 154/85
--- NOTE | 2018-11-26 11:51 | NUR ---
DISCHARGE NOTE: SW reviewed chart and spoke with nursing and attending physician. Pt is medically stable for discharge home today with HH services. SW met with pt at bedside to discuss discharge plan. Pt aware of HH orders. Options provided for HH agencies. Pt has used [facility] in the past, and requests to use them again. SW confirmed pt's home address and phone number. Pt's PCP is Dr. Taylor. Pt has Home O2 in place with [facility]. Pt also has an [employer] portable tank. Pt's family to provide transportation home later today. digital media planner to fax clinical info and discharge orders/summary to [facility]. Contact info for [facility] placed in pt's discharge summary. No additional SW needs identified at this time, but is available to assist should needs arise.
--- NOTE | 2018-11-26 12:04 | NUR ---
DISCHARGE ORDERS RECEIVED. PATIENT DISCHARGING TO HOME WITH HOME HEALTH SERVICES. PATIENT PREFERENCE IS [facility]. REFERRAL FAXED TO [facility] WITH PATIENTS DISCHARGE/HOME HEALTH ORDERS AND DISCHARGE SUMMARY. NANCY [facility] LIAISON NOTIFIED. CALL PLACED TO [facility] INTAKE TO NOTIFY. SPOKE WITH MAURO. [facility] WILL REVIEW PATIENT INFORMATION AND NOTIFY CM ONCE COMPLETED. FOLLOWING.
== END 2018-11-26 17:54 | disposition home health service (06) | DRG 193 ==
LOC: ER 14:45 → EROBS 16:58 → ICU 16:58 → 3W 16:58 → ICU 19:35 → 3W 11-25 01:21
PROVIDERS: Emergency Medicine; ADMIT Hospitalist
DX: J18.9 Pneumonia, unspecified organism (principal); J96.21 Acute and chronic respiratory failure with hypoxia; J96.22 Acute and chronic respiratory failure with hypercapnia; J44.1 Chronic obstructive pulmonary disease with (acute) exacerbation; R65.10 Systemic inflammatory response syndrome (SIRS) of non-infectious origin without acute organ dysfunction; I50.32 Chronic diastolic (congestive) heart failure; J44.0 Chronic obstructive pulmonary disease with (acute) lower respiratory infection; J45.909 Unspecified asthma, uncomplicated; F17.210 Nicotine dependence, cigarettes, uncomplicated; M62.84 Sarcopenia; K59.00 Constipation, unspecified; D64.9 Anemia, unspecified; R73.9 Hyperglycemia, unspecified; Z93.3 Colostomy status; Z88.0 Allergy status to penicillin; Z88.8 Allergy status to other drugs, medicaments and biological substances; Z88.1 Allergy status to other antibiotic agents; Z91.041 Radiographic dye allergy status; Z85.118 Personal history of other malignant neoplasm of bronchus and lung; Z82.49 Family history of ischemic heart disease and other diseases of the circulatory system; Z71.6 Tobacco abuse counseling; Z90.49 Acquired absence of other specified parts of digestive tract
CPT/HCPCS: 10078; 10879

== ENCOUNTER 2021-05-10 21:59 | Emergency (ER) | payer OTHER ==
[~2021-05-10] VITALS: Ht 152.4 cm; Wt 58.6 kg
[~2021-05-10 21:59] MED LIST changes: +IPRAT-ALBUT 0.5-3 ML INH; +MUCINEX600 MG PO; +PERFOROMIS20 MCG/2 M INH
[2021-05-10 22:48] LABS: BE(vivo) 1.8 mmol/L (-2 to +3); HCO3 27.1 mmol/L (22.0-26.0); PCO2 44.6 mmHg (35.0-45.0); PO2 58.1 mmHg (80.0-100.0); pH 7.401 (7.360-7.450); sO2 90.1 % (92.0-98.0)
[2021-05-10 22:52] LABS: ABSOLUTE NEUTROPHILS 3.5 thou/uL (1.4-8.2); BASOPHILS 0.5 % (0.0-2.0); EOSINOPHILS 0.2 % (0.0-3.0); HEMATOCRIT 39.3 % (37.0-47.0); HEMOGLOBIN 13.2 gm/dL (12.0-15.0); LYMPHOCYTES 22.3 % (24.0-44.0); MCH 30.4 pg (26.0-34.0); MCHC 33.5 g/dL (28.0-37.0); MCV 90.8 fL (80.0-100.0); PLATELET COUNT 133 thou/uL (150-400); RBC 4.33 mil/uL (4.20-5.00); RDW 12.4 % (10.5-14.5); WBC 5.4 thou/uL (4.0-11.0)
[2021-05-10 23:45] LABS: ALBUMIN 3.4 g/dL (3.4-5.0); CALCIUM 8.2 mg/dL (8.5-10.1); CREATININE 0.5 mg/dL (0.6-1.0); POTASSIUM 3.3 mmol/L (3.5-5.1); TOTAL BILIRUBIN 0.2 mg/dL (0.2-1.0); TOTAL PROTEIN 7.2 g/dL (6.4-8.2)
[2021-05-11] MEDS ORDERED: LONHALA MA25 MCG/11 INH (00:08)
[2021-05-11] MEDS ORDERED: PREDNISONE 20 M20 MG PO (00:13)
[2021-05-11] MEDS ORDERED: CEFUROXIME500 MG PO (00:13)
[2021-05-11] MEDS ORDERED: ZPAK PO (00:13)
[2021-05-11 00:53] VITALS: BP 115/58
--- NOTE | 2021-05-11 12:59 | EKG ---
[place] [address] [facility] [address] [place] [address] ELECTROCARDIOGRAM REPORT Name: BRANDINOHELIAPARADISE Clifford 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 briceno : 1950 Requested By: Umer Zuniga Order Number: [id number] MD: Evelio Philippe Measurements Intervals [place] Rate: 81 P: 71 RI: 125 QRS: 16 QRSD: 108 T: 49 QT: 345 QTc: 401 Interpretive Statements Sinus rhythm Ventricular premature complex Probable left atrial enlargement Abnormal R-wave progression, late transition Baseline wander in lead(s) V1,V2 Compared to ECG 11/23/2018 14:58:58 Ventricular premature complex(es) now present Sinus tachycardia no longer present Electronically Signed On 05-11-2021 12:59:42 CDT by Evelio Philippe [email or web address] <ELECTRONICALLY SIGNED> By: Evelio Philippe MD 05/11/21 1259 51 225 Evelio Philippe MD /EPI
== END 2021-05-11 01:36 | disposition home or self-care (01) ==
LOC: ER 21:59
PROVIDERS: Emergency Medicine
DX: U07.1 COVID-19 (principal); J12.82 Pneumonia due to coronavirus disease 2019; J45.909 Unspecified asthma, uncomplicated; F17.210 Nicotine dependence, cigarettes, uncomplicated; J44.9 Chronic obstructive pulmonary disease, unspecified; Z79.899 Other long term (current) drug therapy; Z98.51 Tubal ligation status; Z90.89 Acquired absence of other organs; Z88.0 Allergy status to penicillin; Z88.1 Allergy status to other antibiotic agents; Z91.041 Radiographic dye allergy status; Z91.02 Food additives allergy status